=== PATIENT | female | born 1995 | race Caucasian/White ===

== ENCOUNTER 2022-06-02 12:12 | Emergency (ER) | payer OTHER ==
--- NOTE | 2022-06-02 14:33 | ED Physician Documentation ---
PD HPI HEADACHE - Stated complaint Stated Complaint: TINGLING FACE/N/MIGRAIN - Chief complaint Chief Complaint: Neuro - History obtained from History obtained from: Patient - History of Present Illness Timing - onset: How many months ago (patient with headaches, intermittent worsening of them, associated with episodes of numbness/tingling in extremities, visual changes, and feelings of body aches. Her children have had repeated URIs since Feb. They found mold behind ceiling panel and concerned they are having toxicity from the mold.) Timing - onset during: Light activity (she has worse headaches with activity and stress. Has been seen by PMD who has tried Topomax, then Lamotrigine, along with Sertraline and PRN Rizatryptan. Seen 05/24 and Rx terbinafine antifungal for concern of mold. Pt had MRI brain a week ago and she reports it did not have any definitive findings) Timing - details: Gradual onset, Still present (current headache worsening the past day, feeling like migraine more than the daily chronic headache. No response to Rizatryptan. Has mild congestion too. Her 2 children currently with URI symptoms and being seen today as well. Mom concerned about mold toxicity for them as well.) Worst headache ever?: No: Worst headache ever? Location: Global Quality: Throbbing, Aching Associated symptoms: Nausea, Numbness (in right arm), Vision changes. No: Fever, Stiff neck, Vomiting, Weakness, Seizure Contributing factors: No: Possible carbon monoxide, Recent illness Similar symptoms before: No diagnosis (chronic daily headaches and migraines current working dx. Has had some blood tests and also had MRI brain last week without particular abnormality per patient.) Recently seen: Clinic Review of Systems Constitutional: denies: Fever, Chills Nose: denies: Rhinorrhea / runny nose, Congestion Throat: denies: Sore throat Respiratory: denies: Cough PD PAST MEDICAL HISTORY - Present Medications Home Medications: Ambulatory Orders Medication Instructions Recorded Confirmed Nortriptyline [Pamelor] 25 mg PO HS 20 Days #20 cap 06/02/22 Prochlorperazine [Compazine] 5 mg PO Q6H PRN #15 tablet 06/02/22 - Allergies Allergies/Adverse Reactions: Allergies Allergy/AdvReac Type Severity Reaction Status Date / Time latex Allergy Hives Verified 06/02/22 12:50 PD ED PE NORMAL - Vitals Vital signs reviewed: Yes - General General: Alert and oriented X 3, No acute distress, Well developed/nourished - Derm Derm: Normal color, Warm and dry - Neuro Neuro: Alert and oriented X 3, No motor deficit, No sensory deficit, Normal speech Eye Opening: Spontaneous Motor: Obeys Commands Verbal: Oriented GCS Score: 15 - Psych Psych: No: Normal affect (somewhat sad/disappointed that i did not know of particular testing for mold toxicity. ) Results - Vitals Vitals: Oxygen O2 Source Room air PD Medical Decision Making - ED course Complexity details: re-evaluated patient (we discussed other possible meds to try for chronic daily headaches as the current ones are not doing much improvement for her, per patient. Can try adding low dose nortyptylline. ), considered differential (patient with migraine type symptoms. She shows me several web sites that discuss symptoms of toxic mold and state there are "blood tests" that can be done to evaluate for it. none give actual test names. I referenced UpToDate and it states testing of the house mold itself is the method to do. ), d/w patient, other (I looked through our test ordering system and did not find any mold/fungal blood testing panels. ) Departure - Departure Disposition: 01 Home, Self Care Clinical Impression: Recurrent headache, Paresthesia Condition: Stable Record reviewed to determine appropriate education?: Yes Instructions: ED Headache Migraine Follow-Up: RIC KRISHNAMURTHY ARNP [Primary Care Provider] - Prescriptions: Prochlorperazine [Compazine] 5 mg PO Q6H PRN #15 tablet PRN Reason: Nausea / Vomiting Nortriptyline [Pamelor] 25 mg PO HS 20 Days #20 cap Comments: It does sound like you have a fairly complex set of symptoms regarding your headache and numbness and other symptoms. Follow-up with your primary care regarding treatments for your headache. If the ondansetron is not effective for nausea, you could try instead Compazine every 6-8 hours if needed in combination with the rizatriptan for your migraines. The Compazine is used for migraines itself as well. You have tried several medications to try to reduce the daily and frequent headaches and migraines. We could try a low-dose of a different medication and see if that is more effective. Another common when used in this setting would be nortriptyline. I wrote a prescription for a low-dose of that daily for a few weeks. He could see if that is helpful during that timeframe. Follow-up with your primary care. Regarding mold exposure from your house, follow-up with your primary care to see if there is any particular testing regarding that. I am not familiar with any blood test to specifically test for molds and I could not find any in our lab order in system. There are certainly can be things available in your primary care may be able to research and order those. Otherwise just nonspecific indicator such a blood count/eosinophil count sometimes correlates with environmental allergy type symptoms. Discharge Date/Time: 06/02/22 15:45
[2022-06-02] MEDS ORDERED: KETOROLAC 30 MG/ML VIAL IM STA (15:14)
[2022-06-02 15:45] VITALS: BP 120/78
== END 2022-06-02 15:45 | disposition home or self-care (01) ==
LOC: ED 12:12
DX: R51.9 Headache, unspecified (principal); R20.2 Paresthesia of skin; R11.0 Nausea
CPT/HCPCS: 96372; 99283

== ENCOUNTER 2023-12-16 16:25 | Emergency (ER) | payer OTHER ==
[2023-12-16 17:02] LABS: BASOPHILS % (AUTO) 0.5 %; EOSINOPHILS # (AUTO) 0.2 10^3/uL (0.0-0.7); EOSINOPHILS % (AUTO) 2.7 %; HCT - HEMATOCRIT 38.3 % (37.0-47.0); HGB - HEMOGLOBIN 12.5 g/dL (12.0-16.0); LYMPHOCYTES # (AUTO) 2.2 10^3/uL (1.5-3.5); LYMPHOCYTES % (AUTO) 27.5 %; MEAN CORPUSCULAR HEMOGLOBIN 29.9 pg (27.0-31.0); MEAN CORPUSCULAR HGB CONC 32.6 g/dL (32.0-36.0); MEAN CORPUSCULAR VOLUME 91.6 fL (81.0-99.0); MEAN PLATELET VOLUME 8.1 fL (7.9-10.8); MONOCYTES # (AUTO) 0.7 10^3/uL (0.0-1.0); MONOCYTES % (AUTO) 8.3 %; NEUTROPHILS # (AUTO) 4.9 10^3/uL (1.5-6.6); NEUTROPHILS % (AUTO) 60.5 %; PLT - PLATELET COUNT 370 10^3/uL (130-450); RED BLOOD COUNT 4.18 10^6/uL (4.20-5.40); RED CELL DISTRIBUTION WIDTH 12.4 % (12.0-15.0); WHITE BLOOD COUNT 8.2 x10^3/uL (4.8-10.8)
[2023-12-16 17:21] LABS: ALBUMIN 4.9 g/dL (3.2-5.5); ALBUMIN/GLOBULIN RATIO 1.8 (1.0-2.2); BILIRUBIN,TOTAL 0.2 mg/dL (0.2-1.0); CALCIUM 10.2 mg/dL (8.5-10.3); CREATININE 0.7 mg/dL (0.6-1.3); POTASSIUM 3.9 mmol/L (3.5-4.5); TOTAL PROTEIN 7.7 g/dL (6.4-8.9)
[2023-12-16 17:23] LABS: TROPONIN I HIGH SENSITIVITY 3.1 ng/L (2.3-14.8)
--- NOTE | 2023-12-16 17:56 | XRAY Report ---
PROCEDURE: Chest 1V INDICATIONS: Chest pain TECHNIQUE: One view of the chest was acquired. COMPARISON: None. FINDINGS: Surgical changes and devices: None. Lungs and pleura: No pleural effusions or pneumothorax. Lungs are clear. Mediastinum: Mediastinal contours appear normal. Heart size is normal. Bones and chest wall: No suspicious bony lesions. Overlying soft tissues appear unremarkable. IMPRESSION: No acute cardiopulmonary process. Reviewed by: Driss Zapata MD on 12/16/2023 5:40 PM PDT Approved by: Driss Zapata MD on 12/16/2023 5:40 PM PDT Station ID: [id number]
--- NOTE | 2023-12-16 18:00 | ED Physician Documentation ---
History of Present Illness - Stated complaint Stated Complaint: SOA/CP - Chief complaint Chief Complaint: Cardiac - History obtained from History obtained from: Patient - History of Present Illness Timing: Today Pain level max: 0 Pain level now: 0 - Additonal information Additional information: Patient is a 28-year-old female who presents to the emergency department stating that she has had tachycardia ongoing for several years. She said that no cost has been found. She has been seen by rheumatology and been told that she may have dysautonomia. She states that she has a cardiology referral. She states she does not usually have low blood pressure, but occasionally it will be low and cause her to feel lightheaded. She states that her heart rate has been consistently over 100 for the past one week. No nausea or vomiting. No chest pain. No shortness of breath. No recent travel. No leg swelling. Nothing makes it better or worse she does notice that her heart rate seems to go up when she stands up. Patient denies any possibility of . No history of blood clots or PE. No chest pain. Review of Systems Constitutional: denies: Fever, Chills Nose: denies: Rhinorrhea / runny nose, Congestion Cardiac: denies: Chest pain / pressure Respiratory: denies: Dyspnea, Cough GI: denies: Nausea, Vomiting, Diarrhea Skin: denies: Rash Musculoskeletal: denies: Neck pain, Back pain Neurologic: denies: Headache PD PAST MEDICAL HISTORY - Past Medical History Past Medical History: Yes Psych: Depression, Anxiety, Bipolar disorder, ADD/ADHD, Post traumatic stress disorder Musculoskeletal: Fibromyalgia Other Past Medical History: Dysautonomia. 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 HEENT: Tonsil/Adenoidectomy - Present Medications Home Medications: Ambulatory Orders Medication Instructions Recorded Confirmed Nortriptyline [Pamelor] 25 mg PO HS 20 Days #20 cap 06/02/22 Prochlorperazine [Compazine] 5 mg PO Q6H PRN #15 tablet 06/02/22 - Allergies Allergies/Adverse Reactions: Allergies Allergy/AdvReac Type Severity Reaction Status Date / Time latex Allergy Hives Verified 12/16/23 16:42 - Social History Does the pt smoke?: No Smoking Status: Never smoker Does the pt drink ETOH?: No - Immunizations Immunizations are current?: Yes - POLST Patient has POLST: No PD ED PE NORMAL - Vitals Vital signs reviewed: Yes - General General: Alert and oriented X 3, No acute distress - HEENT HEENT: PERRL, Moist mucous membranes, Pharynx benign, Dentition benign - Neck Neck: Supple, no meningeal sign - Cardiac Cardiac: Strong equal pulses, Other (tachycardic) - Respiratory Respiratory: No respiratory distress, Clear bilaterally - Abdomen Abdomen: Soft, Non tender, Non distended - Derm Derm: Warm and dry - Extremities Extremities: No edema, No calf tenderness / cord - Neuro Neuro: Alert and oriented X 3 - Psych Psych: Normal mood, Normal affect Results - Vitals Vitals: Vital Signs - 24 hr 12/16/23 12/16/23 12/16/23 16:32 18:41 18:55 Temperature 36.8 C Heart Rate 124 H 96 Respiratory 16 18 Rate Blood Pressure 137/84 H 128/93 H Blood Pressure 119/78 [Left] O2 Saturation 99 98 12/16/23 20:18 Temperature 36.2 C L Heart Rate 80 Respiratory 16 Rate Blood Pressure 134/84 H Blood Pressure [Left] O2 Saturation 100 Oxygen O2 Source Room air - EKG (time done) 1646 EKG releavant findings:: EKG personally interpreted by author of this note. Relevant findings are: Rate: Rate (enter#) (111) Rhythm: Sinus tachycardia [place]: Normal Intervals: Normal NE QRS: Normal Ischemia: Normal ST segments - Labs Labs: Laboratory Tests 12/16/23 12/16/23 16:58 16:58 WBC 8.2 RBC 4.18 L Hgb 12.5 Hct 38.3 MCV 91.6 MCH 29.9 MCHC 32.6 RDW 12.4 Plt Count 370 MPV 8.1 Neut # (Auto) 4.9 Lymph # (Auto) 2.2 Price # (Auto) 0.7 Eos # (Auto) 0.2 Baso # (Auto) 0.0 Absolute Nucleated RBC 0.00 Nucleated RBC % 0.0 Sodium 137 Potassium 3.9 Chloride 102 Carbon Dioxide 29 Anion Gap 6.0 BUN 13 Creatinine 0.7 Estimated GFR (MDRD) 99 Glucose 108 H Calcium 10.2 Total Bilirubin 0.2 AST 20 ALT 22 Alkaline Phosphatase 63 Troponin I High Sens 3.1 Total Protein 7.7 Albumin 4.9 Globulin 2.8 Albumin/Globulin Ratio 1.8 Lipase 36 - Rads (name of study) cxr Relevant Findings:: Final report received, See rad report PD Medical Decision Making - ED course Complexity details: reviewed results, re-evaluated patient, considered differential, d/w patient ED course: Unclear etiology of the patient symptoms. POTS syndrome is a possibility. May also reflect to [place]. May reflect adrenal issues. May reflect primary cardiac or neurological issues. No evidence of pulmonary embolism. Symptoms resolved after IV fluids. Heart rate decreased down to the 80s. She states that she feels better than she has in several weeks. This makes me suspect POTS syndrome. Recommend that she follow up with her doctor for further care and return if she worsens. Make sure she is drinking plenty of fluid at home. Patient counseled regarding signs and symptoms for which I believe an urgent re-evaluation would be necessary. Patient with good understanding of and agreement to plan and is comfortable going home at this time. This document was made in part using voice recognition software. While efforts are made to proofread this document, sound alike and grammatical errors may occur. No significant lab abnormalities. Departure - Departure Disposition: 01 Home, Self Care Clinical Impression: Tachycardia Condition: Good Instructions: ED Palpitations Follow-Up: TOMMY Mcmanus [Provider Group] Comments: As we discussed there could be many reasons for your tachycardia. You could have a condition known as POTS, postural orthostatic tachycardic syndrome. You may have dysautonomia. You could have adrenal gland issues. You could have neurological issues. You will need further workup and evaluation for these conditions to determine proper treatment for you. An echocardiogram may be useful before you see a trains service conductor[place] Make sure that you are drinking plenty of fluids. Please return if you worsen. Forms: PCP List Discharge Date/Time: 12/16/23 20:32
[2023-12-16] MEDS: SODIUM CHLORIDE 0.9% 2,000 ML IV STA (19:25)
[2023-12-16 20:23] VITALS: BP 134/84; O2SAT 100
== END 2023-12-16 20:32 | disposition home or self-care (01) ==
LOC: ED 16:25
DX: R00.0 Tachycardia, unspecified (principal); Z79.899 Other long term (current) drug therapy; Z91.040 Latex allergy status
CPT/HCPCS: 36415; 80053; 83690; 84484; 85025; 93005; 99284